=== PATIENT | female | born 1995 | race Caucasian/White ===

== ENCOUNTER → 2020-12-30 09:32 | Outpatient (CLI) | payer OTHER, SELFPAY | PROVIDERS: Visit Provider Physician Assistant | DX: J02.9 Acute pharyngitis, unspecified (principal) | CPT/HCPCS: 87070 ==

== ENCOUNTER → 2021-06-07 16:08 | Outpatient (CLI) | payer BC, SELFPAY ==
[2021-06-07 16:45] LABS: COVID19 -Nasal RAPID Negative (Negative)
== END ==
PROVIDERS: Visit Provider Nurse Practitioner Family
DX: R52 Pain, unspecified (principal); R05.9 Cough, unspecified; J02.9 Acute pharyngitis, unspecified
CPT/HCPCS: 87635

== ENCOUNTER → 2022-01-01 14:37 | Outpatient (CLI) | payer BC, SELFPAY ==
[2022-01-01 15:54] LABS: Add Manual Diff / Slide Review NO; Basophils Absolute Auto 100 /uL (0-100); Eosinophils Absolute Auto 200 /uL (0-450); Eosinophils Percent Auto 2.8 % (2-4); Hematocrit 40.9 % (36-46); Lymphocytes Absolute Auto 2100 /uL (1100-4500); Lymphocytes Percent Auto 32.6 % (25-40); Mean Corpuscular HGB Conc 34.2 % (30-36); Mean Corpuscular Hemoglobin 31.4 PG (26-34); Mean Corpuscular Volume 91.9 fL (80-100); Monocytes Absolute Auto 500 /uL (0-900); Monocytes Percent Auto 7.2 % (3-14); Neutrophils Absolute Auto 3600 /uL (1500-7000); Neutrophils Percent Auto 56.4 % (50-75); Platelet Count 201 X10^3/uL (150-400); Red Blood Cell Count 4.45 X10^6/uL (4.0-5.2); Red Cell Distribution Width 12.6 % (11.6-14.8); White Blood Cell Count 6.3 X10^3/uL (4.5-11.0)
[2022-01-01 16:19] LABS: HEMOLYSIS < 15 (0-50); Iron 131 ug/dL (37-170)
[2022-01-01 16:30] LABS: Percent Iron Saturation 40 % (15-50); Total Iron Binding Capacity 330 ug/dL (265-497); Transferrin 254 mg/dL (206-381)
[2022-01-01 16:59] LABS: Ferritin 26 ng/mL (6-137)
[2022-01-01 17:13] LABS: Vitamin B12 863 pg/mL (239-931)
== END ==
PROVIDERS: PCP Family Medicine; Referring Provider Family Medicine; Visit Provider Family Medicine
DX: E61.1 Iron deficiency (principal); Z78.9 Other specified health status
CPT/HCPCS: 36415; 82607; 82728; 83540; 83550; 85025

== ENCOUNTER → 2023-10-28 15:05 | Outpatient (CLI) | payer BC, SELFPAY ==
[2023-10-28 20:39] LABS: Urine N gonorrhoeae NOT DETECTED
[2023-10-28 20:50] LABS: Urine Chlamydia NOT DETECTED
== END ==
PROVIDERS: PCP Family Medicine; Visit Provider Student in an Organized Health Care Education/Training Program
DX: Z34.01 Encounter for supervision of normal first pregnancy, first trimester (principal); Z3A.08 8 weeks gestation of pregnancy
CPT/HCPCS: 87491; 87591

== ENCOUNTER → 2023-10-28 15:41 | Outpatient (CLI) | payer BC, SELFPAY ==
[2023-10-28 17:52] LABS: Add Manual Diff / Slide Review NO; Basophils Absolute Auto 100 /uL (0-100); Basophils Percent Auto 0.6 % (0-2); Eosinophils Absolute Auto 200 /uL (0-450); Eosinophils Percent Auto 1.5 % (2-4); Hematocrit 41.8 % (36-46); Hemoglobin 14.4 g/dL (12.0-16.0); Lymphocytes Absolute Auto 1800 /uL (1100-4500); Lymphocytes Percent Auto 16.6 % (25-40); Mean Corpuscular HGB Conc 34.4 % (30-36); Mean Corpuscular Hemoglobin 31.3 PG (26-34); Monocytes Absolute Auto 700 /uL (0-900); Monocytes Percent Auto 6.4 % (3-14); Neutrophils Absolute Auto 8000 /uL (1500-7000); Neutrophils Percent Auto 74.9 % (50-75); Platelet Count 198 X10^3/uL (150-400); Red Blood Cell Count 4.59 X10^6/uL (4.0-5.2); Red Cell Distribution Width 12.7 % (11.6-14.8); White Blood Cell Count 10.7 X10^3/uL (4.5-11.0)
== END ==
PROVIDERS: PCP Family Medicine; Referring Provider Student in an Organized Health Care Education/Training Program; Visit Provider Student in an Organized Health Care Education/Training Program
DX: Z34.01 Encounter for supervision of normal first pregnancy, first trimester (principal); Z3A.08 8 weeks gestation of pregnancy
CPT/HCPCS: 36415; 80055; 86787; 86803; 86850; 86900; 86901; 87086; 87389; 87491; 87591

== ENCOUNTER → 2023-10-28 17:22 | Outpatient (CLI) | payer BC, SELFPAY | PROVIDERS: PCP Family Medicine; Referring Provider Family Medicine; Visit Provider Family Medicine | DX: Z34.00 Encounter for supervision of normal first pregnancy, unspecified trimester (principal) | CPT/HCPCS: 87086 ==

== ENCOUNTER → 2024-01-15 16:13 | Outpatient (CLI) | payer BC, SELFPAY ==
--- NOTE | 2024-01-15 16:14 | DI.US.S_ITS ---
PROCEDURE: US OB >= 14 WEEKS FETUS INDICATIONS: 20weeks anatomy OUTSIDE/PRIOR DATING DATA: Last menstrual period (LMP): 08/28/23. LMP-based estimated date of delivery (JEFFERSON): 06/03/24. First dating scan (date and location): 12/02/23, performed by [facility] OB staff. Estimated date of delivery (JEFFERSON) from first dating scan: No crown-rump length image or data available from PACS system. From LMP current estimated gestational age is 20 weeks 0 days. TECHNIQUE: Real-time scanning was performed of the fetus, with image documentation and biometric measurements. Endovaginal scanning: Not needed COMPARISON: [facility], , OB <= 14 WEEKS FETUS, 12/02/2023, 14:48. FINDINGS: General: A single living intrauterine gestation is present. Presentation: Currently transverse head right.. Placenta: Placental position is posterior , without previa. Amniotic fluid index: 17.8 cm, normal range is 5-24 cm. Single deepest vertical pocket is 5.4 cm. heart rate: 149 beats per minute. Maternal cervical canal: 4.9 cm long. Normal lower limit is 2.5 cm. biometrics: Biparietal diameter: 5.0 cm, 21 weeks 1 day Head circumference: 17.6 cm, 20 weeks 1 day Abdominal circumference: 15.7 cm, 20 weeks 6 days Femur length: 3.2 cm, 20 weeks 0 days Clinically estimated gestational age: 20 weeks 0 days from LMP Composite gestational age from present scan: 20 weeks 4 days Estimated weight and percentile: 354 g, 71st percentile, appropriate interval growth. Anatomic survey: Neuro: Ventricles are non-dilated at less than 10 mm. Cisterna magna is normal at 3-11 mm. Cerebellum is normal in size and morphology. Nuchal skin fold: Normal at less than 6 mm between 14-21 weeks gestational age. Face: Nose and lips, facial profile are normal. Spine: No evidence for spina bifida. Heart: 4-chambered heart is present, with normal ventricular outflow tracts. Diaphragm: Diaphragm is intact. Stomach: Left-sided stomach is present. Kidneys: No hydronephrosis. Normal is less than 5 mm in 2nd trimester, less than 7 mm in 3rd trimester. Cord: 3-vessel cord has orthotopic insertion. Bladder: Normal in size. Extremities: All 4 extremities identified. IMPRESSION: Single living intrauterine gestation, appropriate interval growth. The delivery date is projected to be centered on 05/30/24. Dictated by: Andriy Baxter M.D. on 01/16/2024 at 9:55 Approved by: Andriy Baxter M.D. on 01/16/2024 at 10:11
== END ==
PROVIDERS: PCP Family Medicine; Referring Provider Student in an Organized Health Care Education/Training Program; Visit Provider Student in an Organized Health Care Education/Training Program
DX: Z34.02 Encounter for supervision of normal first pregnancy, second trimester (principal); Z3A.20 20 weeks gestation of pregnancy
CPT/HCPCS: 76811

== ENCOUNTER → 2024-03-05 11:20 | Outpatient (CLI) | payer BC, SELFPAY ==
[2024-03-05 13:07] LABS: Hematocrit 37.8 % (36-46); Hemoglobin 12.8 g/dL (12.0-16.0)
[2024-03-05 13:26] LABS: GTT (PREG) 1 Hour PP 50gm Dose 124 mg/dL (76-139)
== END ==
PROVIDERS: PCP Family Medicine; Referring Provider Student in an Organized Health Care Education/Training Program; Visit Provider Student in an Organized Health Care Education/Training Program
DX: Z13.0 Encounter for screening for diseases of the blood and blood-forming organs and certain disorders involving the immune mechanism (principal); Z13.1 Encounter for screening for diabetes mellitus
CPT/HCPCS: 36415; 82950; 85014; 85018

== ENCOUNTER 2024-04-16 12:58 | Outpatient (CLI) | payer BC, SELFPAY ==
[2024-04-16] VITALS (16 sets, daily range): BP systolic 94–105; BP diastolic 54–63; PULSE 53–77; RESP 12–25; TEMP 36.4; O2SAT 98–100; BMI 25.9
--- NOTE | 2024-04-16 13:04 | DI.US.S_ITS ---
PROCEDURE: US OB LIMITED INDICATIONS: hypotension, OUTSIDE/PRIOR DATING DATA: Last menstrual period (LMP): 08/28/23 LMP-based estimated date of delivery (JEFFERSON): 06/03/24. First dating scan (date and location): 01/15/24. TECHNIQUE: Real-time scanning was performed of the fetus, with image documentation. Endovaginal scanning: Not needed COMPARISON: None. FINDINGS: A single living intrauterine gestation is present. Presentation: Vertex. Placenta: Placental position is posterior, without previa. Amniotic fluid index: 11.3 cm, normal range is 5-24 cm. Single deepest vertical pocket is 4.5 cm. heart rate: 153 beats per minute. Maternal cervical canal: 3.8 cm long. Normal lower limit is 2.5 cm. Clinically estimated gestational age: 20 weeks 4 days Estimated gestational age from initial scan: 20 weeks 0 days. Limited evaluation of structure shows no anomaly. No evidence of placental abruption. IMPRESSION: No acute disease. Single living intrauterine gestation with delivery date projected to be centered on 06/03/24. Dictated by: Andriy Baxter M.D. on 04/16/2024 at 14:17 Approved by: Andriy Baxter M.D. on 04/16/2024 at 14:20
--- NOTE | 2024-04-16 13:04 | DI.RAD.S_ITS ---
PROCEDURE: XR CHEST 1V INDICATIONS: syncope TECHNIQUE: One view of the chest was acquired. COMPARISON: None. FINDINGS: Surgical changes and devices: None. Lungs and pleura: Pulmonary vascular congestion. No pleural effusions or pneumothorax. Mediastinum: Mediastinal contours appear normal. Heart size is enlarged. Bones and chest wall: No suspicious bony lesions. Overlying soft tissues appear unremarkable. IMPRESSION: Cardiomegaly and mild congestion. No definite focal infiltrate. No pleural effusion or pneumothorax. Dictated by: Luis Barbour M.D. on 04/16/2024 at 13:50 Approved by: Luis Barbour M.D. on 04/16/2024 at 13:50
--- NOTE | 2024-04-16 13:08 | ED.PREGNANCY ---
HPI - General Chief complaint: Syncope Stated complaint: Syncope x2, 33 Weeks preg Time Seen by Provider: 04/16/24 13:04 Source: patient, EMS, RN notes reviewed and old records reviewed Mode of arrival: EMS Limitations: no limitations History of Present Illness HPI Narrative: 28-year-old female 33 weeks who states she was riding in the vehicle felt very lightheaded had what described as 2 syncopal episodes where she lost consciousness. She did not have any additional with EMS but states she felt sort of funny. She denies headache, denies chest pain or pressure, denies any shortness of breath, no cold cough or congestion symptoms. She denies any abdominal back or flank pain denies any nausea or vomiting. No diarrhea or constipation. She has not had any fluid leakage or vaginal bleeding. Denies any new swelling in extremities. States she passed out once during her 1st trimester. States besides prenatals no daily medications. Denies any prior surgeries. No known drug allergies. No tobacco, alcohol or recreational drugs. States normal systolic blood pressure has been about 115. She follows with Dr. Eduardo for her care locally. Patient had fluids started in the field by EMS. Glucose was 100. Related Data Home Medications Medication Instructions Recorded Confirmed ascorbate calcium (vitamin C) 500 500 mg PO DAILY 01/01/22 03/12/24 mg tablet atks-L28-[id number] tablet tab PO 01/01/22 03/12/24 desonide 0.05 % topical cream 1 applic topical DAILY PRN 09/25/23 03/12/24 fluocinonide 0.1 % topical cream 1 applic topical BID-QID PRN 09/25/23 03/12/24 Lacto-B.anim,bifid-inulin 30 cap PO 10/07/23 03/12/24 billion cell-50 mg capsule,delay release (Fortify Probiotic) OCK12-XX 400 mcg-om3 35 mg-dha 25 tab PO 10/07/23 03/12/24 mg-epa 5 mg-fish oil chewable tablet Previous Rx's Medication Instructions Recorded RSVPreF3 antigen-AS01E 0.5 ml IM ONCE #1 ea 04/09/24 adjuvant(PF) 120 mcg/0.5 mL IM suspension, kit Allergies Allergy/AdvReac Type Severity Reaction Status Date / Time No Known Drug Allergies Allergy Verified 04/16/24 13:09 Review of Systems Review of Systems ROS Unobtainable: All systems reviewed & are unremarkable except as noted in HPI and below Exam Narrative Exam Narrative: GEN:, well-appearing female, alert and oriented x 3, patient appears to be in mild distress. No diaphoresis. HEENT: Atraumatic, pupils are equal round reactive to light, extraocular movements are intact, nares are clear, there is no conjunctival pallor. Throat is clear without any exudates, erythema, tonsillar enlargement or uvular deviation HEART: Regular rate and rhythm without murmur, clicks, rubs. No carotid bruits, pulses are equal in upper and lower extremities. No edema bilateral lower extremities. LUNGS:Lungs clear to auscultation, no wheezes, rales, crackles, chest moves symmetrically, no tachypnea accessory muscle use ABD:bowel sounds normal, soft, non-tender, no guarding, rebound, rigidity, no masses noted, no hepatosplenomegaly :No CVA tenderness, gravid size appropriate for dates. Nontender. No palpable contractions. MSCL: Non-tender, no muscle atrophy, muscles strength 5/5 upper and lower extremities, full range of motion NEURO:CN 2-12 intact, sensation normal. SKIN: No rash, erythema or other skin changes noted Initial Vital Signs Initial Vital Signs: Vital Signs Pulse Rate 65 04/16/24 13:02 Pulse Oximetry 100 04/16/24 13:02 Course Orders Ordered: ED Orders 04/16/24 13:04 US OB limited Stat XR chest 1V Stat EKG-12 Lead Stat 04/16/24 13:05 Complete Blood Count AUTO DIFF Stat Comprehensive Metabolic Panel Stat Lactate (Lactic Acid) Stat Lipase Stat NT-proBNP (BNP-Adult 18+) Stat PTT Partial Thromboplastin Sai Stat Prothrombin Time INR Stat Troponin & CK Cardiac Panel Stat 04/16/24 14:55 Urine Microscopic Stat 04/16/24 15:07 EC echo doppler complete Stat Discontinued Medications Sodium Chloride (Normal Saline 0.9%) 1,000 mls @ 1,000 mls/hr IV BOLUS ONE Stop: 04/16/24 14:03 Last Infusion: 04/16/24 15:41 Dose: Infused Documented By: Admin: 04/16/24 14:35 Dose: 1,000 mls/hr Documented By: YOLANDE Vital Signs Vital signs: Vital Signs - 8 hr 04/16/24 13:02 04/16/24 13:03 04/16/24 13:03 Temperature Pulse Rate 65 58 L Respiratory Rate Blood Pressure 97/55 L Pulse Oximetry 100 100 Oxygen Delivery Method 04/16/24 13:05 04/16/24 13:15 04/16/24 13:30 Temperature 97.6 F Pulse Rate 60 53 L 58 L Respiratory Rate 14 15 21 Blood Pressure 97/55 L Pulse Oximetry 100 100 100 Oxygen Delivery Method Room Air 04/16/24 13:30 04/16/24 13:45 04/16/24 13:45 Temperature Pulse Rate 63 Respiratory Rate 17 Blood Pressure 105/61 104/58 L Pulse Oximetry 100 Oxygen Delivery Method 04/16/24 14:00 04/16/24 14:00 04/16/24 14:15 Temperature Pulse Rate 65 61 Respiratory Rate 18 20 Blood Pressure 102/62 Pulse Oximetry 100 100 Oxygen Delivery Method 04/16/24 14:15 04/16/24 14:30 04/16/24 14:30 Temperature Pulse Rate 60 Respiratory Rate 24 Blood Pressure 100/60 100/55 L Pulse Oximetry 99 Oxygen Delivery Method 04/16/24 14:45 04/16/24 14:45 04/16/24 14:58 Temperature Pulse Rate 61 68 Respiratory Rate 17 Blood Pressure 102/59 L Pulse Oximetry 98 99 Oxygen Delivery Method 04/16/24 14:58 04/16/24 15:00 04/16/24 15:00 Temperature Pulse Rate 66 Respiratory Rate 12 Blood Pressure 100/55 L 103/54 L Pulse Oximetry 99 Oxygen Delivery Method 04/16/24 15:15 04/16/24 15:15 04/16/24 15:30 Temperature Pulse Rate 62 66 Respiratory Rate 12 19 Blood Pressure 102/56 L Pulse Oximetry 99 98 Oxygen Delivery Method 04/16/24 15:30 Temperature Pulse Rate Respiratory Rate Blood Pressure 94/54 L Pulse Oximetry Oxygen Delivery Method MDM - OB/Uterine Contractions Lab Data 04/16/24 13:05 04/16/24 13:05 Labs: Lab Results 04/16/24 04/16/24 Range/Units 13:05 14:55 WBC 8.5 (4.5-11.0) X10^3/uL RBC 3.67 L (4.0-5.2) X10^6/uL Hgb 12.0 (12.0-16.0) g/dL Hct 35.2 L (36-46) % MCV 95.8 (80-100) fL MCH 32.7 (26-34) PG MCHC 34.2 (30-36) % RDW 13.3 (11.6-14.8) % Plt Count 127 L (150-400) X10^3/uL Neut % (Auto) 75.8 H (50-75) % Lymph % (Auto) 14.5 L (25-40) % Phelps % (Auto) 7.4 (3-14) % Eos % (Auto) 1.7 L (2-4) % Baso % (Auto) 0.6 (0-2) % Neut # (Auto) 6400 (8308-2358) /uL Lymph # (Auto) 1200 (1008-8525) /uL Phelps # (Auto) 600 (0-900) /uL Eos # (Auto) 100 (0-450) /uL Baso # (Auto) 100 (0-100) /uL PT 10.8 (9.4-12.5) SECONDS INR 1.0 (0.9-1.3) APTT 29 (25.1-36.5) SECONDS Sodium 134 L (137-145) mmol/L Potassium 3.6 (3.4-5.1) mmol/L Chloride 110 H (98-107) mmol/L Carbon Dioxide 21 L (22-32) mmol/L BUN 2 L (7-17) mg/dL Creatinine 0.52 (0.52-1.04) mg/dL Estimated GFR > 60 (>60) mL/min BUN/Creatinine Ratio 3.8 L (6-22) Glucose 75 (70-100) mg/dL Lactate 1.1 (0.7-2.1) mmol/L Calcium 8.0 L (8.4-10.2) mg/dL Total Bilirubin 0.4 (0.2-1.3) mg/dL AST 20 (14-36) IU/L ALT 12 (<35) IU/L Alkaline Phosphatase 83 (38-126) U/L Total Creatine Kinase 46 (30-135) U/L Troponin I < 0.012 (0.01-0.034) ng/mL NT-Pro-B Natriuret Pep 27 (<125) pg/mL Total Protein 5.4 L (6.3-8.2) g/dL Albumin 2.8 L (3.5-5.0) g/dL Globulin 2.6 (1.7-4.1) g/dL Albumin/Globulin Ratio 1.1 (1.0-2.8) Lipase 77 (23-300) U/L Urine RBC 0-1/hpf (0-5/HPF) Urine WBC 0-1/hpf (0-5/HPF) Ur Squamous Epith Cells 0-1 /hpf (0-5/HPF) Urine Bacteria Moderate (10-30) H (None) Ur Culture Indicated? Cult not indicated Vol Urine Centrifuged 10ml (spun) Urine Dip Bedside Urine Glucose Negative Bedside Urine Bilirubin - Negative Bedside Urine Ketone + 15 Urine Specific [place] 1.0 Bedside Urine Occult Blood - Negative Bedside Urine pH 7.0 Bedside Urine Protein - Negative Bedside Urine Urobilinogen - Negative Bedside Urine Nitrite - Negative Bedside Urine Leukocytes - Negative Esterase Imaging Data US - OB: Radiologist's Impression: Close Obstetrics Ultrasound (Signed) Andriy Baxter - 04/16/24 Ultrasound (Cancelled) 04/16/24 Chest X-Ray (Signed) Luis Barbour - 04/16/24 Ultrasound (Signed) Andriy Baxter - 01/15/24 [place] [address] Ultrasound Report Signed Patient: Simon Garcia MR#: [id number] : 1995 Acct:[id number] Age/Sex: 28 / F Date of Service: 04/16/24 Loc: ED Accession Number: [id number] Procedure: US OB limited Ordering Provider: Doris Tierney D.O. PROCEDURE: US OB LIMITED INDICATIONS: hypotension, OUTSIDE/PRIOR DATING DATA: Last menstrual period (LMP): 08/28/23 LMP-based estimated date of delivery (JEFFERSON): 06/03/24. First dating scan (date and location): 01/15/24. TECHNIQUE: Real-time scanning was performed of the fetus, with image documentation. Endovaginal scanning: Not needed COMPARISON: None. FINDINGS: A single living intrauterine gestation is present. Presentation: Vertex. Placenta: Placental position is posterior, without previa. Amniotic fluid index: 11.3 cm, normal range is 5-24 cm. Single deepest vertical pocket is 4.5 cm. heart rate: 153 beats per minute. Maternal cervical canal: 3.8 cm long. Normal lower limit is 2.5 cm. Clinically estimated gestational age: 20 weeks 4 days Estimated gestational age from initial scan: 20 weeks 0 days. Limited evaluation of structure shows no anomaly. No evidence of placental abruption. IMPRESSION: No acute disease. Single living intrauterine gestation with delivery date projected to be centered on 06/03/24. Dictated by: Andriy Baxter M.D. on 04/16/2024 at 14:17 Approved by: Andriy Baxter M.D. on 04/16/2024 at 14:20 ECG Data Attestation: I personally reviewed and interpreted this ECG as follows: Prior ECG tracings: not available for review Interpretation: Bradycardia rate of 50 PA 136 QRS 86 QTC of 412, no acute ST elevation depression/inversion lead 3 but not in 2 and AVF. Little bit lateral V3 V4. Bite no priors for comparison. MDM Narrative Medical decision making narrative: 28-year-old female with syncope x2 while seated in the car her was driving her. Patient had 1 prior episode of syncope in her 1st trimester. Had systolic blood pressure that was low but heart rate was in the 60s for EMS. They did start fluids. Glucose was 100. Patient states she was otherwise feeling okay low felt lightheaded just prior to the syncopal episode. Lab labs show white count 8.5 hemoglobin of 12 platelets of 127. Sodium 134 potassium 3.6 chloride of 110 CO2 of 21 BUN to creatinine 0.52 glucose is 75 lactate 1.1 LFTs are negative troponin negative BNP is 27 EKG sinus bradycardia Chest x-ray shows heart size is enlarged, mild congestion no focal infiltrate no pleural effusions or pneumothorax. OB ultrasound no acute change single living intrauterine gestation. Point of care urine You have NST performed by OB nursing no concerning changes were relayed. Patient received fluids in the field, patient is bradycardic sometimes down into the 40s. Patient heart rate in the 70s in the past in 2021. Patient has had some responds to fluids, systolics now 102 she was about a L and a half through. Concern for potential cardiomyopathy, pulmonary embolism is on the differential but seems much less likely as patient is not hypoxic, not tachycardic but bradycardic with what sounds like somewhat new bradycardia. Patient states heart rates normally in the 60s. Echo was ordered and we will be obtained this afternoon. Patient continues to feel improved, she has been able to be upright and ambulate without issue. Spoke with Dr. Jordan, who agrees about concerns with patient's chest x-ray changes and syncopal episode and bradycardia. We will touch base with L&D but plan for observation under OB with Medicine to consult as needed. Patient accepted by Dr. Jordan going to L and D for echo and evaluation and continuous monitoring. Discharge Plan Departure Patient Disposition: Admitted as Observation Clinical Impression: Syncope, Admit Date/Time: 04/16/24 15:32 Admit Provider: Samreen Jordan
[2024-04-16 13:26] LABS: Add Manual Diff / Slide Review NO; Basophils Absolute Auto 100 /uL (0-100); Basophils Percent Auto 0.6 % (0-2); Eosinophils Absolute Auto 100 /uL (0-450); Eosinophils Percent Auto 1.7 % (2-4); Hematocrit 35.2 % (36-46); Lymphocytes Absolute Auto 1200 /uL (1100-4500); Lymphocytes Percent Auto 14.5 % (25-40); Mean Corpuscular HGB Conc 34.2 % (30-36); Mean Corpuscular Hemoglobin 32.7 PG (26-34); Mean Corpuscular Volume 95.8 fL (80-100); Monocytes Absolute Auto 600 /uL (0-900); Monocytes Percent Auto 7.4 % (3-14); Neutrophils Absolute Auto 6400 /uL (1500-7000); Neutrophils Percent Auto 75.8 % (50-75); Platelet Count 127 X10^3/uL (150-400); Red Blood Cell Count 3.67 X10^6/uL (4.0-5.2); Red Cell Distribution Width 13.3 % (11.6-14.8); White Blood Cell Count 8.5 X10^3/uL (4.5-11.0)
--- NOTE | 2024-04-16 13:31 | EKG_ITS ---
[facility] [address] [address] Test Date: 2024-04-16 Pat Name: Simon Garcia Department: [facility] Room: Gender: Female Polisher Dial: LYNNE : 1995 Requested By: Order Number: [id number] Reading MD: Kendrick Klein MD Measurements Intervals Pe[place] Rate: 50 P: 30 TX: 136 QRS: 64 QRSD: 86 T: 18 QT: 452 QTc: 412 Interpretive Statements Sinus bradycardia Electronically Signed On 04-16-2024 14:51:50 PST by Kendrick Klein MD
[2024-04-16 13:47] LABS: Prothrombin Time 10.8 SECONDS (9.4-12.5)
[2024-04-16 13:50] LABS: PTT Partial Thromboplastin Tim 29 SECONDS (25.1-36.5)
[2024-04-16 13:51] LABS: Lactate (Lactic Acid) 1.1 mmol/L (0.7-2.1)
[2024-04-16 13:52] LABS: Alanine Aminotransferase 12 IU/L (<35); Albumin 2.8 g/dL (3.5-5.0); Albumin Globulin Ratio 1.1 (1.0-2.8); Alkaline Phosphatase 83 U/L (38-126); Aspartate Aminotransferase 20 IU/L (14-36); Bilirubin Total 0.4 mg/dL (0.2-1.3); Carbon Dioxide 21 mmol/L (22-32); Chloride 110 mmol/L (98-107); Creatine Kinase 46 U/L (30-135); Estimated Glomerular Filt Rate > 60 mL/min (>60); Globulin 2.6 g/dL (1.7-4.1); Glucose 75 mg/dL (70-100); HEMOLYSIS < 15 (0-50); Lipase 77 U/L (23-300); Potassium 3.6 mmol/L (3.4-5.1); Sodium 134 mmol/L (137-145); Total Protein 5.4 g/dL (6.3-8.2)
[2024-04-16 13:55] LABS: BUN Creatinine Ratio 3.8 (6-22); Blood Urea Nitrogen 2 mg/dL (7-17)
[2024-04-16 14:04] LABS: NT-proBNP (BNP-Adult 18+) 27 pg/mL (<125); Troponin I < 0.012 ng/mL (0.01-0.034)
--- NOTE | 2024-04-16 14:11 | PC.NURSE ---
NST for 20 mins, reactive. 130s FHR +accels, no decels. No ctxs per TOCO. US completed during NST.
[2024-04-16] MEDS: SODIUM CHLORIDE 0.9% 1,000 ML 1000 ML IV (14:35)
--- NOTE | 2024-04-16 15:07 | DI.ECHO.S_ITS ---
[facility] : : [address] : : [place] : : [id number] : : Phone: [phone] Echocardiogram Report + + :Name: ANTONIO FRAUSTO Study Date: 04/16/2024 Height: 67 in : :Hospital ReadingLocation: Weight: 166 lb: : Gender: Female BSA: 1.9 m2 : :: 1995 Age: 28 yrs BP: 94/54 mmHg: :Reason For Study: SYNCOPE, : :Ordering Physician: DIMAS, : :PREMA Performed By: Filipe Pulido : :Referring: PREMA COCHRAN : + + Interpretation Summary The ejection fraction is estimated to be 60-65%. Diastolic parameters suggest probable normal left ventricular diastolic function and normal filling pressures. The right ventricular systolic function is normal. No significant valvular abnormality. The inferior vena cava was not visualized. Procedure: A two-dimensional transthoracic echocardiogram with color flow and Doppler was performed. The study quality was technically difficult. There is no prior echocardiogram noted for this patient. The patient was in normal sinus rhythm during the exam. Left Ventricle: The left ventricle is normal in size. There is normal left ventricular wall thickness. The ejection fraction is estimated to be 60-65%. There are no focal wall motion abnormalities. Diastolic parameters suggest probable normal left ventricular diastolic function and normal filling pressures. Right Ventricle: The right ventricular systolic function is normal. Atria: The left atrium grossly appears normal in size. Right atrium not well visualized. The interatrial septum is not well visualized. Mitral Valve: The mitral valve is normal in structure and function. There is no mitral stenosis. There is trace mitral regurgitation. Aortic Valve: The aortic valve is trileaflet. The aortic valve opens well. There is no hemodynamically significant valvular aortic stenosis. No aortic regurgitation is present. Tricuspid Valve: The tricuspid valve is not well visualized, but is grossly normal. No tricuspid regurgitation. Pulmonic Valve: The pulmonic valve is normal in structure and function. There is no pulmonic valvular regurgitation. Great Vessels: The aortic root is normal size. The dimensions of the ascending aorta are normal. The pulmonary artery is normal size. The inferior vena cava was not visualized. Pericardium/ Pleura There is no pericardial effusion. MMode/2D Measurements & Calculations LVIDd: 4.3 cm LVOT diam: 2.0 cm LVIDs: 2.9 cm Ao root diam: 2.9 cm FS: 31.7 % asc Aorta Diam: 2.9 cm EPSS: 0.48 cm Ao Arch Diam (Prox Trans): 2.1 cm IVSd: 0.78 cm LVPWd: 1.0 cm LV rowan. diameter/BSA (cm/m^2): 2.3 LV sys. diameter/BSA (cm/m^2): 1.6 LA A4 area: 18.6 cm2 LA length (vol): 4.9 cm Doppler Measurements & Calculations Ao V2 max: 166.4 cm/sec LVOT Max Guilherme: 111.7 cm/sec Ao V2 mean: 109.9 cm/sec LV V1 max P.0 mmHg Ao max P.1 mmHg LV V1 VTI: 24.1 cm Ao mean P.6 mmHg TIANNA(I,D): 2.2 cm2 Ao V2 VTI: 35.5 cm TIANNA(V,D): 2.2 cm2 sev ratio: 0.68 TIANNA indexed to BSA (cm^2/m^2): 1.2 MV E max guilherme: 102.6 cm/sec PA V2 max: 107.4 cm/sec MV A max guilherme: 63.3 cm/sec PA V2 mean: 72.6 cm/sec MV E/A: 1.6 PA mean P.4 mmHg Med Peak E' Guilherme: 8.2 cm/sec PA pr(Accel): 20.8 mmHg E/E' med: 12.5 Lat Peak E' Guilherme: 11.2 cm/sec E/E' lat: 9.2 E/e' average: 10.8 MV dec time: 0.20 sec SV(LVOT): 77.3 ml Reading Physician:PM
[2024-04-16 15:29] LABS: Bacteria Urine Moderate (10-30); Culture Indicated Urine Cult Not Indicated; RBC Urine 0-1/HPF (0-5/HPF); Squamous Epithelial Cell Urine 0-1 /HPF (0-5/HPF); Urine Volume 10mL (spun); WBC Urine 0-1/HPF (0-5/HPF)
--- NOTE | 2024-04-16 16:24 | PM.OBTRLD ---
Visit Information Visit Information Date of evaluation: 04/16/24 Primary OB Provider: Angy Eduardo On-call OB Provider: Samreen Jordan Reason for Evaluation: Yes other Comments/Additional reasons for admission: Witnessed syncope x2 prior to arrival, eval in ED with noted sinus bradycardia, CXR with concern for pulmonary vascular congestion and cardiomegaly; reactive NST, all labs wnl and pt symptomatically improved with 2L IVF Echocardiogram obtained, pending read (expedited per provider request) Pt states she and her were driving back to [place] from [facility] when she suddenly began to feel dizzy and nauseous she reclined her seat with exacerbation of the symptoms and subsequently had full witnessed LOC. Her pulled the car over and called 911, notes pt took approximately 5min to return to baseline (during that time eyes were open, making moaning noises). No loss of bowel or bladder function. She was evaluated by EMS and it was recommended she proceed to hospital for further evaluation via private vehicle. En route to facility patient again experienced full LOC for approximately 2min regaining consciousness on arrival to ED. Per ED provider original HR with noted bradycardia (sunil 40/41bpm) and hypotensive (SBP 70s). Pt had symptomatic improvement with IV fluid bolus and labs resulted wnl with exception of mild thrombocytopenia (plt 127k). On interview patient states that she is now feeling significantly better, +FM, denies VB, LOF, dysuria. Notes minimal PO intake for breakfast today (Belvita crackers, water, 2 pieces of chocolate). Vital Signs Vital Signs: Vital Signs - 8 hr 04/16/24 13:02 04/16/24 13:03 04/16/24 13:03 Temperature Pulse Rate 65 58 L Respiratory Rate Blood Pressure 97/55 L Pulse Oximetry 100 100 Oxygen Delivery Method 04/16/24 13:05 04/16/24 13:15 04/16/24 13:30 Temperature 97.6 F Pulse Rate 60 53 L 58 L Respiratory Rate 14 15 21 Blood Pressure 97/55 L Pulse Oximetry 100 100 100 Oxygen Delivery Method Room Air 04/16/24 13:30 04/16/24 13:45 04/16/24 13:45 Temperature Pulse Rate 63 Respiratory Rate 17 Blood Pressure 105/61 104/58 L Pulse Oximetry 100 Oxygen Delivery Method 04/16/24 14:00 04/16/24 14:00 04/16/24 14:15 Temperature Pulse Rate 65 61 Respiratory Rate 18 20 Blood Pressure 102/62 Pulse Oximetry 100 100 Oxygen Delivery Method 04/16/24 14:15 04/16/24 14:30 04/16/24 14:30 Temperature Pulse Rate 60 Respiratory Rate 24 Blood Pressure 100/60 100/55 L Pulse Oximetry 99 Oxygen Delivery Method 04/16/24 14:45 04/16/24 14:45 04/16/24 14:58 Temperature Pulse Rate 61 68 Respiratory Rate 17 Blood Pressure 102/59 L Pulse Oximetry 98 99 Oxygen Delivery Method 04/16/24 14:58 04/16/24 15:00 04/16/24 15:00 Temperature Pulse Rate 66 Respiratory Rate 12 Blood Pressure 100/55 L 103/54 L Pulse Oximetry 99 Oxygen Delivery Method 04/16/24 15:15 04/16/24 15:15 04/16/24 15:30 Temperature Pulse Rate 62 66 Respiratory Rate 12 19 Blood Pressure 102/56 L Pulse Oximetry 99 98 Oxygen Delivery Method 04/16/24 15:30 04/16/24 15:45 04/16/24 15:45 Temperature Pulse Rate 77 Respiratory Rate 14 Blood Pressure 94/54 L 97/60 Pulse Oximetry 99 Oxygen Delivery Method 04/16/24 16:00 04/16/24 16:00 Temperature Pulse Rate 64 Respiratory Rate 25 H Blood Pressure 99/63 Pulse Oximetry 98 Oxygen Delivery Method [facility] Medical History (Updated 04/16/24 @ 14:01 by Doris Tierney DO) Clavicle fracture (~1996) Mononucleosis (~2012) Painful menstrual periods Irregular menstrual cycle Hemorrhoid (~2009) Surgical History (Updated 10/07/23 @ 13:13 by Mini Valladares RN) History of removal of skin mole Anesthesia [place] teeth removed (~2010) Family History (Updated 10/07/23 @ 13:18 by Mini Valladares RN) Grandfather Prostate cancer Grandmother Lung cancer Smoker Mother Rosacea Uncle Stroke Aunt Obesity History of gastric bypass Hx of CABG Heart disease Aunt Psoriasis Aunt Cancer Social History marital status: number of children: 0 household members: spouse lives independently: Yes caregiver/support person: No housing: house pets and animals: Yes (cat, managing litter box) education level: college (bachelor's degree) 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) current occupational exposures/hazards: Yes special blayne needs: No travel history: recent (domestic only) seatbelt use: always helmet use: Yes water heater temp set < 120 deg: Yes working smoke detector in home: Yes fire extinguisher in home: Yes carbon monox detector in home: Yes firearms in home: No do you feel safe at home: Yes Smoking Status: Never smoker second hand exposure: No alcohol intake: former (rarely when not , not for a while) substance use type: does not use and marijuana (not recently, does not plan to use while /) during the past year weight has: remained stable well-balanced diet: daily or most days daily servings fruits/ve or more times/day caffeine: Yes (2 cups decaf coffee in AM) Type(s) of exercise: running Review of Systems Review of Systems ROS: Yes All systems reviewed with the patient and are negative except as otherwise documented Exam Vital Signs (past 8 hours): - 04/16/24 13:02 04/16/24 13:03 04/16/24 13:03 Temperature Pulse Rate 65 58 L Respiratory Rate Blood Pressure 97/55 L Pulse Oximetry 100 100 Oxygen Delivery Method 04/16/24 13:05 04/16/24 13:15 04/16/24 13:30 Temperature 97.6 F Pulse Rate 60 53 L 58 L Respiratory Rate 14 15 21 Blood Pressure 97/55 L Pulse Oximetry 100 100 100 Oxygen Delivery Method Room Air 04/16/24 13:30 04/16/24 13:45 04/16/24 13:45 Temperature Pulse Rate 63 Respiratory Rate 17 Blood Pressure 105/61 104/58 L Pulse Oximetry 100 Oxygen Delivery Method 04/16/24 14:00 04/16/24 14:00 04/16/24 14:15 Temperature Pulse Rate 65 61 Respiratory Rate 18 20 Blood Pressure 102/62 Pulse Oximetry 100 100 Oxygen Delivery Method 04/16/24 14:15 04/16/24 14:30 04/16/24 14:30 Temperature Pulse Rate 60 Respiratory Rate 24 Blood Pressure 100/60 100/55 L Pulse Oximetry 99 Oxygen Delivery Method 04/16/24 14:45 04/16/24 14:45 04/16/24 14:58 Temperature Pulse Rate 61 68 Respiratory Rate 17 Blood Pressure 102/59 L Pulse Oximetry 98 99 Oxygen Delivery Method 04/16/24 14:58 04/16/24 15:00 04/16/24 15:00 Temperature Pulse Rate 66 Respiratory Rate 12 Blood Pressure 100/55 L 103/54 L Pulse Oximetry 99 Oxygen Delivery Method 04/16/24 15:15 04/16/24 15:15 04/16/24 15:30 Temperature Pulse Rate 62 66 Respiratory Rate 12 19 Blood Pressure 102/56 L Pulse Oximetry 99 98 Oxygen Delivery Method 04/16/24 15:30 04/16/24 15:45 04/16/24 15:45 Temperature Pulse Rate 77 Respiratory Rate 14 Blood Pressure 94/54 L 97/60 Pulse Oximetry 99 Oxygen Delivery Method 04/16/24 16:00 04/16/24 16:00 Temperature Pulse Rate 64 Respiratory Rate 25 H Blood Pressure 99/63 Pulse Oximetry 98 Oxygen Delivery Method Oxygen Delivery Method Room Air Const General: cooperative, healthy appearing, comfortable and well developed Nutritional Appearance: average body habitus Orientation: alert, awake and oriented x3 Limitations: mental status not altered Eyes General: appearance normal, both eyes and all related structures Neck Neck: normal visual inspection Chest Chest: normal inspection of the chest Resp Effort & Inspection: normal respiratory effort and able to speak in complete sentences Cardio Rhythm: regular rhythm Pulses: normal peripheral pulses GI Inspection: normal to inspection Palpation: soft Other: gravid, size c/w dates Other: deferred Skin General: no rashes or lesions noted Neuro General: patient alert, patient awake and patient oriented x3 Extrem General: normal to inspection Psych Mental Status: mental status grossly normal Judgment: judgment good Objective Labs 04/16/24 13:05 04/16/24 13:05 Labs: Laboratory Results - last 24 hr 04/16/24 04/16/24 13:05 14:55 WBC 8.5 RBC 3.67 L Hgb 12.0 Hct 35.2 L MCV 95.8 MCH 32.7 MCHC 34.2 RDW 13.3 Plt Count 127 L Neut % (Auto) 75.8 H Lymph % (Auto) 14.5 L [place] % (Auto) 7.4 Eos % (Auto) 1.7 L Baso % (Auto) 0.6 Neut # (Auto) 6400 Lymph # (Auto) 1200 [place] # (Auto) 600 Eos # (Auto) 100 Baso # (Auto) 100 PT 10.8 INR 1.0 APTT 29 Sodium 134 L Potassium 3.6 Chloride 110 H Carbon Dioxide 21 L BUN 2 L Creatinine 0.52 Estimated GFR > 60 BUN/Creatinine Ratio 3.8 L Glucose 75 Lactate 1.1 Calcium 8.0 L Total Bilirubin 0.4 AST 20 ALT 12 Alkaline Phosphatase 83 Total Creatine Kinase 46 Troponin I < 0.012 NT-Pro-B Natriuret Pep 27 Total Protein 5.4 L Albumin 2.8 L Globulin 2.6 Albumin/Globulin Ratio 1.1 Lipase 77 Urine RBC 0-1/hpf Urine WBC 0-1/hpf Ur Squamous Epith Cells 0-1 /hpf Urine Bacteria Moderate (10-30) H Ur Culture Indicated? Cult not indicated Vol Urine Centrifuged 10ml (spun) Evaluation Evaluation Baseline heart rate: 140 Variability: Moderate (11-25) monitor accelerations: Present Monitor Decelerations: Absent Uterine Contraction Intensity: Mild Category of Tracing: Reactive Status: Category l Diagnosis, Plan/Disposition Plan/Disposition Plan: unprovoked syncope, most consistent with transient IVC compression secondary to position. Labs wnl, Reassuring surveillance, EKG with mild bradycardia (since resolved), echo without concern for cardiomegaly (EF 60%) reviewed with patient importance of hydration, L lateral tilt strict precautions reviewed, low threshold to return in zoroastrianism of recurrent symptoms OB Disposition: home
== END 2024-04-16 17:25 | disposition home or self-care (01) ==
LOC: ED 15:32 → LABOR 15:54 → OB 04-19 11:13
PROVIDERS: Emergency Provider Emergency Medicine; PCP Family Medicine; Referring Provider Emergency Medicine; Visit Provider Obstetrics & Gynecology
DX: O26.893 Other specified pregnancy related conditions, third trimester (principal); R55 Syncope and collapse; R00.1 Bradycardia, unspecified; Z3A.33 33 weeks gestation of pregnancy
CPT/HCPCS: 36415; 59025; 59050; 71045; 76815; 80053; 81003; 81015; 82550; 83605; 83690; 83880; 84484; 85025; 85610; 85730; 93005; 93010; 93306; 96360; 99284; G0378

== ENCOUNTER → 2024-05-14 10:36 | Outpatient (CLI) | payer BC, SELFPAY ==
[2024-05-15 08:36] LABS: Strep Grp B PCR POS for Grp B Strep
== END ==
PROVIDERS: PCP Family Medicine; Visit Provider Student in an Organized Health Care Education/Training Program
DX: Z36.85 Encounter for antenatal screening for Streptococcus B (principal)
CPT/HCPCS: 87653

== ENCOUNTER → 2024-05-14 10:49 | Outpatient (CLI) | payer BC, SELFPAY ==
[2024-05-14 13:02] LABS: Add Manual Diff / Slide Review NO; Basophils Absolute Auto 0 /uL (0-100); Basophils Percent Auto 0.4 % (0-2); Eosinophils Absolute Auto 100 /uL (0-450); Eosinophils Percent Auto 1.4 % (2-4); Hematocrit 38.6 % (36-46); Lymphocytes Absolute Auto 1400 /uL (1100-4500); Mean Corpuscular HGB Conc 33.8 % (30-36); Mean Corpuscular Hemoglobin 32.4 PG (26-34); Mean Corpuscular Volume 95.9 fL (80-100); Monocytes Absolute Auto 800 /uL (0-900); Monocytes Percent Auto 7.2 % (3-14); Neutrophils Absolute Auto 8200 /uL (1500-7000); Platelet Count 138 X10^3/uL (150-400); Red Blood Cell Count 4.02 X10^6/uL (4.0-5.2); Red Cell Distribution Width 13.6 % (11.6-14.8); White Blood Cell Count 10.5 X10^3/uL (4.5-11.0)
== END ==
PROVIDERS: PCP Family Medicine; Referring Provider Student in an Organized Health Care Education/Training Program; Visit Provider Student in an Organized Health Care Education/Training Program
DX: O99.119 Other diseases of the blood and blood-forming organs and certain disorders involving the immune mechanism complicating pregnancy, unspecified trimester (principal); D69.6 Thrombocytopenia, unspecified; Z36.85 Encounter for antenatal screening for Streptococcus B
CPT/HCPCS: 36415; 85025; 87653

== ENCOUNTER 2024-06-08 04:35 | Outpatient (CLI) | payer BC, SELFPAY ==
[2024-06-08] MEDS: ZOLPIDEM 5 MG TABLET PO (05:48)
== END 2024-06-08 06:02 | disposition home or self-care (01) ==
LOC: OB 06-10 06:10
PROVIDERS: PCP Family Medicine; Referring Provider Student in an Organized Health Care Education/Training Program; Visit Provider Student in an Organized Health Care Education/Training Program
DX: O47.1 False labor at or after 37 completed weeks of gestation (principal); Z3A.40 40 weeks gestation of pregnancy
CPT/HCPCS: 59025; G0378; G0379

== ENCOUNTER 2024-06-08 12:37 | Inpatient (IN) | payer BC, SELFPAY ==
--- NOTE | 2024-06-08 18:14 | P.HPOB_ITS ---
OB HPI Date/Time Date of admission: 06/08/24 Date Patient Seen: 06/08/24 Time Patient Seen: 18:14 History of Present Condition Chief complaint: OBS : 1 Para: 0 Estimated Date of Delivery: 06/03/24 Estimated Gestational Age (weeks): 40+5 Narrative: Simon Garcia is a 28 year old female Comments: admitted in early labor with regular painful contractions. Denied leaking fluid or vaginal bleeding. History of Present care: good care Dating criteria: LMP confirmed by 1st trimester US Ultrasounds: normal mid trimester US Obstetrical complications: none Medical complications: none Narrative: Ultrasound Ultrasound Details:: Dating US 10/28/23: [place] IUP with CRL 1.85cm (8+2wks), FHR 181bpm, normal appearing uterus, bilateral ovaries, and cervix Anatomy US 01/30/24: normal anatomy, posterior placenta, EFW 71%ile Expected Delivery Route/Plan Anticipate , [facility] Specific Issues/Plans G1 (gender is a surprise!) GBS positive Gestational thrombocytopenia (127 at 33wks)--> [x] repeat CBC at 36wks- platelets 138 Vegetarian diet, no fish or dairy (does eat eggs) 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 Declined aneuploidy/carrier screening at [facility] Ghanshyam Assigned to Jayce Preadmission Labs Blood type: A (+) positive -: Antibody screen: negative, Cystic fibrosis screen: unknown, GBS status: positive, HBsAG: negative, HIV: negative, HSV 1: unknown, HSV 2: unknown and RPR/VDLR: negative -: Chlamydia screen: not detected and Gonorrhea screen: not detected -: Rubella: immune and Varicella: immune HCT: 38.6 HCAB: negative PAP: Normal 1 hr GTT: 124 Evaluation Evaluation Baseline heart rate: 140 Variability: Moderate (11-25) monitor accelerations: Present Monitor Decelerations: Absent Category of Tracing: Reactive Dilation (cm): 3 Effacement (%): 100 station: 0 PFSH Medical History (Updated 05/21/24 @ 10:51 by Angy Eduardo DO) Clavicle fracture (~1996) Mononucleosis (~2012) Painful menstrual periods Irregular menstrual cycle Hemorrhoid (~2009) Surgical History (Updated 10/07/23 @ 13:13 by Mini Valladares RN) History of removal of skin mole Anesthesia [place] teeth removed (~2010) Family History (Updated 10/07/23 @ 13:18 by Mini Valladares RN) Grandfather Prostate cancer Grandmother Lung cancer Smoker Mother Rosacea Uncle Stroke Aunt Obesity History of gastric bypass Hx of CABG Heart disease Aunt Psoriasis Aunt Cancer Social History marital status: number of children: 0 household members: spouse lives independently: Yes caregiver/support person: No housing: house pets and animals: Yes (cat, managing litter box) education level: college (bachelor's degree) 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) current occupational exposures/hazards: Yes special blayne needs: No travel history: recent (domestic only) seatbelt use: always helmet use: Yes water heater temp set < 120 deg: Yes working smoke detector in home: Yes fire extinguisher in home: Yes carbon monox detector in home: Yes firearms in home: No do you feel safe at home: Yes Smoking Status: Never smoker second hand exposure: No alcohol intake: former (rarely when not , not for a while) substance use type: does not use and marijuana (not recently, does not plan to use while /) during the past year weight has: remained stable well-balanced diet: daily or most days daily servings fruits/ve or more times/day caffeine: Yes (2 cups decaf coffee in AM) Type(s) of exercise: running Meds Home Medications and Allergies Home Medications Medication Instructions Recorded Confirmed Type ascorbate calcium (vitamin C) 500 500 mg PO DAILY 01/01/22 05/21/24 History mg tablet [id number] tablet tab PO 01/01/22 05/21/24 History desonide 0.05 % topical cream 1 applic topical DAILY PRN 09/25/23 05/21/24 History fluocinonide 0.1 % topical cream 1 applic topical BID-QID PRN 09/25/23 05/21/24 History Lacto-B.anim,bifid-inulin 30 cap PO 10/07/23 05/21/24 History billion cell-50 mg capsule,delay release (Fortify Probiotic) [id number] 400 mcg-om3 35 mg-dha 25 tab PO 10/07/23 05/21/24 History mg-epa 5 mg-fish oil chewable tablet RSVPreF3 antigen-AS01E 0.5 ml IM ONCE #1 ea 04/09/24 05/21/24 Rx adjuvant(PF) 120 mcg/0.5 mL IM suspension, kit Allergies Allergy/AdvReac Type Severity Reaction Status Date / Time No Known Drug Allergies Allergy Verified 05/21/24 10:31 Review of Systems Review of Systems ROS: Yes All systems reviewed with the patient and are negative except as otherwise documented OB Exam Vital signs Blood Pressure: 108/60 Pulse Rate: 90 Temperature: 97.7 F HENMT Head: normal to inspection Resp Effort & Inspection: normal respiratory effort and able to speak in complete sentences Extremities Lower extremity: Yes normal to inspection GI Other: gravid, nontender, nondistended Presentation: vertex Other: EFW 3700g Assessment and Plan Assessment and Plan Assessment and Plan narrative: 28yo at 40+5wks admitted in early labor. -CBC, T&S on admission -continuous EFM -epidural PRN -GBS positive, will treat with ampicillin -PPH risk low -VTE risk low, SCDs with epidural -anticipate L&D Counseling: Common procedures and interventions related to the management of were explained to the patient, including assistance at vaginal delivery with episiotomy, vacuum, or forceps, use of medications to stop premature labor or induce labor, and assessment including auscultation (listening to the heart), use of electronic monitoring (external and / or internal), and use of scalp electrode and/or intrauterine pressure catheter.? It was also explained that approximately 20-30% of mothers have a need for delivery during their labor course. It was explained to the patient that , labor and delivery are ordinarily normal physiological events and can be expected to provide a healthy outcome for mother and baby in the majority of cases. However, there are complications that may arise during , labor, and delivery, such as: hemorrhage requiring administration of blood and/or blood products, surgical intervention, possibly even hysterectomy for life-saving purposes; possibility of infection requiring antibiotics, prolonged hospital stay, and rarely surgical intervention; possibility of blood clots;? possibility of retained products of conception requiring surgical intervention;? possibility of serious tears or injury to the vagina, cervix, perineum, or rectum;? possibility of injury to abdominal structures if delivery is required;? and rarely maternal or may occur. Time-Based Coding :: [30min] spent with patient and on the chart (including review of chart, obtaining history, exam, reviewing outside data, placing orders, documenting exam and treatment plan, and counseling patient) on [06/08/24].
[2024-06-08 19:53] VITALS: BP 108/60; PULSE 90; TEMP 36.5
[2024-06-08 19:55] VITALS: BP 106/77
[2024-06-08 19:55] LABS: Add Manual Diff / Slide Review NO; Basophils Absolute Auto 100 /uL (0-100); Basophils Percent Auto 0.4 % (0-2); Eosinophils Absolute Auto 0 /uL (0-450); Eosinophils Percent Auto 0.1 % (2-4); Hematocrit 43.7 % (36-46); Hemoglobin 14.8 g/dL (12.0-16.0); Lymphocytes Absolute Auto 1300 /uL (1100-4500); Lymphocytes Percent Auto 8.5 % (25-40); Mean Corpuscular HGB Conc 33.8 % (30-36); Mean Corpuscular Hemoglobin 32.2 PG (26-34); Mean Corpuscular Volume 95.2 fL (80-100); Monocytes Absolute Auto 700 /uL (0-900); Monocytes Percent Auto 4.9 % (3-14); Neutrophils Absolute Auto 13200 /uL (1500-7000); Neutrophils Percent Auto 86.1 % (50-75); Platelet Count 150 X10^3/uL (150-400); Red Blood Cell Count 4.59 X10^6/uL (4.0-5.2); Red Cell Distribution Width 13.4 % (11.6-14.8); White Blood Cell Count 15.3 X10^3/uL (4.5-11.0)
[2024-06-08] MEDS: LACTATED RINGERS 1,000 ML 100 ML IV (19:59)
[2024-06-08] MEDS: AMPICILLIN 2,000 MG in SODIUM CHLORIDE 0.9% 100 ML 200 MG IV (20:09)
--- NOTE | 2024-06-08 20:59 | PM.AN.REGBLK ---
[facility] Pre-procedure Procedure: Continuous Lumbar Epidural for L&D Attending OB provider: Angy Eduardo PMH/ROS narrative: G1PO,spontaneous labor, post dates. GERD with this , otherwise negative. PSH/Anesthesia history narrative: None Exam narrative: Mall I, good airway ASA Class: II Labs: Hct 43.7 % (36-46) 06/08/24 19:45 Plt Count 150 X10^3/uL (150-400) 06/08/24 19:45 Medications: Current Medications Generic Name Dose Route Start Last Admin Trade Name Freq PRN Reason Stop Dose Admin Carboprost Tromethamine 250 mcg 06/08/24 18:01 Carboprost 250 Mcg/Ml Ampul IM Q90M PRN Bleeding Lactated Ringer's 1,000 mls @ 100 mls/hr 06/08/24 18:15 06/08/24 19:59 Lactated Ringers IV 06/09/24 04:14 100 mls/hr CONT LIONEL Administration Oxytocin/Lactated Ringer's 30 unit in 500 mls @ 200 mls/hr 06/08/24 18:01 Oxytocin Premix IV CONT PRN Bleeding Protocol Tranexamic Acid 1,000 mg/ 100 mls @ 600 mls/hr 06/08/24 18:01 Sodium Chloride IV NOW PRN Bleeding Ampicillin Sodium 1,000 mg/ 100 mls @ 200 mls/hr 06/08/24 22:30 Sodium Chloride IV Q4H LIONEL Oxytocin/Lactated Ringer's 30 unit in 500 mls @ 2 mls/hr 06/08/24 18:15 Oxytocin Premix IV TITRATE LIONEL Protocol 2 MILLIUNIT/MIN Lidocaine HCl 20 ml 06/08/24 18:01 Lidocaine 1% 20 Ml INJ INTRA-OP PRN Post Delivery Methylergonovine Maleate 0.2 mg 06/08/24 18:01 Methylergonovine 0.2 Mg Tablet PO Q6HR PRN Heavy Bleeding Methylergonovine Maleate 0.2 mg 06/08/24 18:01 Methylergonovine 0.2 Mg/Ml Vial IM NOW PRN Bleeding Mineral Oil 30 ml 06/08/24 18:01 Mineral Oil 30 Ml Udc TOP PRN PRN Version Misoprostol 800 mcg 06/08/24 18:01 Misoprostol 200 Mcg Tablet [place] NOW PRN Bleeding Misoprostol 400 mcg 06/08/24 18:01 Misoprostol 200 Mcg Tablet SL NOW PRN Bleeding Naloxone HCl 0.2 mg 06/08/24 18:01 Naloxone 0.4 Mg/Ml Vial IV Q2MIN PRN Opiate Reversal Ondansetron HCl 4 mg 06/08/24 18:12 Ondansetron 4 Mg/2 Ml Inj IV Q4HR PRN Nausea And Vomiting Oxytocin 10 unit 06/08/24 18:01 Oxytocin 10 Unit/Ml Vial IM NOW PRN Bleeding Allergies: Allergies Allergy/AdvReac Type Severity Reaction Status Date / Time No Known Drug Allergies Allergy Verified 05/21/24 10:31 Procedure Insertion date: 06/08/24 Insertion time: 20:35 Prep/Local: 1% lidocaine (chlorhexadine skin prep, dry x 3 min) Interspace: L4-5 Patient position: sitting Needle: 17 gauge Tuohy Loss of resistance with: saline CRYSTAL at (cm): 6 Catheter placed at SKIN (cm): 12 Catheter in SPACE (cm): 6 Sensory level: T10 Insertion: No CSF, No Blood, No Paresthesia with insertion, No Paresthesia with injection and No Test dose reaction Initial Medications TEST DOSE time: 20:42 BOLUS DOSE time: 20:49 BOLUS DOSE (mL): 5 BOLUS DOSE med: other (pump solution) Infusion INFUSION: 0.125% bupivacaine and with fentanyl 2 mcg/mL Initial rate (mL/hr): 10 Post-procedure Anesthesia date START: 06/08/24 Anesthesia time START: 20:35
[2024-06-08] MEDS: LACTATED RINGERS 1,000 ML 999 ML IV (21:15)
[2024-06-08] MEDS: AMPICILLIN 1,000 MG in SODIUM CHLORIDE 0.9% 100 ML 200 MG IV (23:48)
[2024-06-09] MEDS: AMPICILLIN 1,000 MG in SODIUM CHLORIDE 0.9% 100 ML 200 MG IV (04:26)
[2024-06-09] MEDS: FENT 2MCG/ML BUPIV 0.125% EPI 200 MCG/100 ML PLAST..BAG 10 MCG EPIDURAL (05:08)
--- NOTE | 2024-06-09 06:48 | PM.OBPNLAB ---
Date/Time Date Patient Seen: 06/09/24 Time Patient Seen: 06:15 Pain Control Pain control: epidural Pelvic Exam Dilation (cm): 10 Effacement (%): 100 station: +1 Comments: AROM performed, productive of clear fluid Contractions Contraction frequency (min): 3 Status status: Category l Heart Rate Baseline: 140 Monitor Accelerations: Present Monitor Decelerations: Absent Monitor Variability: Moderate Assessment and Plan Assessment: active labor Plan: continuous present management Comments: 28yo at 40+6wks now c/c/+1. AROM performed, productive of clear fluid. -begin pushing efforts -anticipate
[2024-06-09] MEDS: TRANEXAMIC ACID 1,000 MG in SODIUM CHLORIDE 0.9% 100 ML 200 MG IV (08:17)
--- NOTE | 2024-06-09 08:35 | PM.OBPRVD ---
Labor & Delivery Delivery date: 06/09/24 Delivery Time: 07:32 Delivery augmentation: rupture of membranes Delivery monitor: external FHT and external uterine Route of delivery: L&D Laceration Description: Periurethral - 2nd Degree, Perineal - 2nd Degree and Labial Delivery repair: vicryl Quantitative Blood Loss: 851 Anesthesia Type: Epidural Complications: none Narrative: The patient progressed to C/C/+1 with epidural anesthesia. After approximately 1 hr of maternal pushing efforts, the infant delivered in OA position and restituted LOT. The anterior shoulder delivered with gentle downward pressure. The posterior shoulder and rest of body delivered with ease. The cord was doubly clamped and cut after a 60sec delay with the placed on maternal abdomen. The placenta delivered spontaneously and was intact with a 3-vessel cord. The fundus was noted to be firm with bimanual massage and pitocin. Inspection of the cervix, vagina, and perineum was notable for a 2nd degree perineal, bilateral periurethral, and bilateral labial lacerations. Repair was performed using 3-0 Vicryl sutures. Blood loss primarily due to the lacerations, as uterine tone was good throughout the repair. She received 1g TXA as well. At the end of the repair, all tissues noted to be hemostatic. All sponges were removed from the vagina. The patient tolerated delivery well and remained in the labor room with the infant at the bedside. Baby 1: gender: Male Presentation: vertex Placenta delivery description: Spontaneous Cord Vessel Description: Nuchal Cord score (1 min): 8 score (5 min): 9 weight: 9 lb 1.646 oz Plan for aftercare: Routine care
[2024-06-09 10:29] VITALS: TEMP 36.7
[2024-06-09] MEDS: IBUPROFEN 600 MG TABLET PO ×2 (10:29→17:23)
[2024-06-09] MEDS: METHYLERGONOVINE 0.2 MG TABLET PO (10:30)
[2024-06-09] MEDS: WITCH HAZEL/GLYCERIN PADS 1 EACH TOP (12:54)
[2024-06-09] MEDS: DERMOPLAST SPRAY 20% 60 ML 1 SPRAY TOP (12:54)
[2024-06-09 17:23] VITALS: TEMP 36.4
[2024-06-09] MEDS: ACETAMINOPHEN 325 MG TABLET 650 MG PO (18:37)
[2024-06-10] MEDS: IBUPROFEN 600 MG TABLET PO ×2 (04:28→14:49)
[2024-06-10] MEDS: ACETAMINOPHEN 325 MG TABLET 650 MG PO (04:29)
[2024-06-10] MEDS: DOCUSATE 100 MG CAPSULE PO (09:59)
[2024-06-10] MEDS: LANOLIN OINT 7 GM 1 APPLIC TOP (10:00)
[2024-06-10] MEDS: PRENATAL VIT,CALC/IRON/FOLIC 1 TABLET 1 TAB PO (10:00)
--- NOTE | 2024-06-10 11:51 | P.DS_ITS ---
Discharge Providers Provider Date of admission: 06/08/24 12:37 Discharge Date: 06/10/24 Primary care physician: Manjit Tovar MD Consults: 06/08/24 18:02 Consult to Anesthesiology Urgent Comment: Consulting Provider: Anesthesiologist Reason for consultation: Epidural 06/10/24 08:33 Consult to Accounting Professor Routine Comment: Discharge provider: Angy Eduardo DO Summary Hospital Course Date Patient Seen: 06/10/24 Time Patient Seen: 11:51 Diagnoses: Term gestation at 40+6wks Gestational thrombocytopenia Group B strep carrier Hospital Course: 28yo [id number] admitted at 40+5wks in early labor. She progressed to an uncomplicated spontaneous vaginal delivery, productive of a viable male infant with APGARs 8/9. Her course was unremarkable. On day #1, she was ambulating, tolerating regular diet, voiding spontaneously with minimal lochia. Her pain was well controlled with oral medications, thus she was discharged to home on day #1. Peripartum Data Delivery Method: Natural Vaginal Laceration Description: Periurethral - 2nd Degree, Perineal - 2nd Degree and Labial Procedures: External monitoring Epidural anesthesia Artificial rupture of membranes Spontaneous vaginal delivery Obstetrical laceration repair complications: none 1: Gender: Male Disposition of : home Discharge Diagnosis (1) Vaginal delivery: Status: Acute (2) Group B streptococcal carriage complicating : Status: Acute (3) Gestational thrombocytopenia: Status: Acute (4) 40 weeks gestation of : Status: Acute Status at Discharge Cognitive/behavioral status at discharge: oriented Functional status at discharge: independent ambulation Overall status at discharge: patient is progressing back to baseline Time Spent with Patient Time attestation: Total time spent providing and/or coordinating discharge services: Time spent: Less than 30 minutes Objective Labs 06/08/24 19:45 Exam Vital Signs (past 8 hours): vitals reviewed in OBIX, within normal parameters Const General: cooperative, healthy appearing, comfortable and No acute distress Resp Effort & Inspection: normal respiratory effort GI Inspection: normal to inspection Other: fundus firm and nontender at U-2 Skin General: no rashes or lesions noted Neuro General: patient alert and patient awake Extrem General: normal to inspection, no pedal edema and no calf tenderness Psych Mood: congruent mood Affect: normal affect Discharge Plan Discharge Plan Patient Disposition: Home Provider Discharge Comment: Take ibuprofen 600mg every 6hrs and acetaminophen 650mg every 6hrs as needed for pain. Avoid placing anything in the vagina for 6 weeks. Discharge orders & Medications Prescriptions: Continued ascorbate calcium (vitamin C) 500 mg tablet 500 mg PO DAILY [id number] Tablet PO [id number] oil 400 mcg-35 mg -25 mg-5 mg tablet,chewable PO Fortify Probiotic 30 billion cell-50 mg capsule,delayed release(DR/EC) PO Follow up/Referrals: Angy Eduardo DO [Physician] - Diet/Activity/Treatments Diet: Diet as Tolerated Activity: As tolerated. Skin/Wound/Dressing Care Report to your healthcare provider any signs of infection, such as:: chills, fever, increased pain and unusual drainage Visit Report/Discharge Packet Instructions: DI for Labor and Delivery, Vaginal Stand Alone Forms: Patient Portal/API, Stroke Signs & Symptoms Discharge Data Primary Care Provider: Manjit Tovar
[2024-06-10 12:40] VITALS: BP 106/77; PULSE 90; RESP 18; TEMP 36.4
== END 2024-06-10 17:50 | disposition home or self-care (01) | DRG 807 ==
PROVIDERS: Admitting Provider Student in an Organized Health Care Education/Training Program; PCP Family Medicine; Referring Provider Student in an Organized Health Care Education/Training Program; Visit Provider Student in an Organized Health Care Education/Training Program
DX: O99.824 Streptococcus B carrier state complicating childbirth (principal); Z37.0 Single live birth; Z3A.40 40 weeks gestation of pregnancy; O70.1 Second degree perineal laceration during delivery
CPT/HCPCS: 36415; 59025; 59050; 85025; 86850; 86900; 86901; G0379; J0290